=== PATIENT | female | born 1940 | race Caucasian/White ===

== ENCOUNTER 2017-03-05 10:00 | Day surgery (SDC) | payer MEDICARE, BC ==
[~2017-03-05] VITALS: Ht 160 cm; Wt 113.5 kg
[2017-03-05] MEDS ORDERED: GLUCOPHAGE500 MG/TAB PO (10:51)
[2017-03-05] MEDS ORDERED: LASIX 40MG TABL40 MG PO (10:52)
[2017-03-05] MEDS ORDERED: COZAAR 50MG50 MG/TAB PO (10:52)
[2017-03-05] MEDS ORDERED: ULTRAM 50MG TAB50 MG PO (10:53)
[2017-03-05] MEDS ORDERED: KLOR-CON M1010 MEQ PO (10:54)
[2017-03-05] MEDS ORDERED: ESTRACE0.1 MG/GM VG (10:56)
[2017-03-05] MEDS ORDERED: ULORIC40 MG PO (10:57)
[2017-03-05] MEDS ORDERED: COLCRYS0.6 MG PO (10:58)
[2017-03-05] MEDS ORDERED: MIRAPEX0.25 MG PO (11:00)
[2017-03-05] MEDS ORDERED: ASPIRIN 32325 MG/TAB PO (11:01)
[2017-03-05] MEDS ORDERED: OSTEO-BI-FLEX 21 TAB PO (11:01)
[2017-03-05] MEDS ORDERED: ALEVE 220MG220 MG PO (11:01)
[2017-03-05] MEDS ORDERED: CRANBERRY500 M3 PO (11:02)
[2017-03-05 11:11] VITALS: BP 132/79; PULSE 82; TEMP 98.5
[2017-03-05 13:50] VITALS: BP 116/84; PULSE 90; TEMP 98.2
[2017-03-05 14:05] VITALS: BP 118/87; PULSE 89
[2017-03-05 14:20] VITALS: BP 128/75; PULSE 89
[2017-03-05 14:35] VITALS: BP 110/58; PULSE 83
[2017-03-05] MEDS ORDERED: CEPHALEXIN500 M1 PO (15:14)
[2017-03-05] MEDS ORDERED: NORCO 325 MG-51 TAB PO (15:14)
== END 2017-03-05 15:30 | disposition home or self-care (01) ==
LOC: SDCO 10:00
DX: R39.15 Urgency of urination (principal); R35.0 Frequency of micturition; G30.9 Alzheimer's disease, unspecified; F02.80 Dementia in other diseases classified elsewhere, unspecified severity, without behavioral disturbance, psychotic disturbance, mood disturbance, and anxiety; E11.9 Type 2 diabetes mellitus without complications; I10 Essential (primary) hypertension; G25.81 Restless legs syndrome; M10.9 Gout, unspecified; K21.9 Gastro-esophageal reflux disease without esophagitis; J44.9 Chronic obstructive pulmonary disease, unspecified; G47.33 Obstructive sleep apnea (adult) (pediatric); Z90.49 Acquired absence of other specified parts of digestive tract; Z90.710 Acquired absence of both cervix and uterus; Z96.642 Presence of left artificial hip joint; Z96.653 Presence of artificial knee joint, bilateral; Z79.84 Long term (current) use of oral hypoglycemic drugs; Z85.72 Personal history of non-Hodgkin lymphomas; Z87.891 Personal history of nicotine dependence; Z81.8 Family history of other mental and behavioral disorders; Z83.3 Family history of diabetes mellitus; Z82.49 Family history of ischemic heart disease and other diseases of the circulatory system
CPT/HCPCS: C1778; C1894; J0690; J2250; J2405; J2704; J3010; J7030

== ENCOUNTER 2017-03-19 10:13 | Day surgery (SDC) | payer MEDICARE, BC ==
[~2017-03-19] VITALS: Ht 160 cm; Wt 112.3 kg
[~2017-03-19 10:13] MED LIST: ALEVE 220MG220 MG PO; ASPIRIN 32325 MG/TAB PO; CEPHALEXIN500 M1 PO; COLCRYS0.6 MG PO; COZAAR 50MG50 MG/TAB PO; CRANBERRY500 M3 PO; ESTRACE0.1 MG/GM VG; GLUCOPHAGE500 MG/TAB PO; KLOR-CON M1010 MEQ PO; LASIX 40MG TABL40 MG PO; MIRAPEX0.25 MG PO; NORCO 325 MG-51 TAB PO; OSTEO-BI-FLEX 21 TAB PO; ULORIC40 MG PO; ULTRAM 50MG TAB50 MG PO
[2017-03-19 11:45] VITALS: BP 151/78; PULSE 87; TEMP 98
[2017-03-19 13:15] VITALS: BP 116/50; PULSE 89; TEMP 97.4
[2017-03-19 13:30] VITALS: BP 129/48; PULSE 86
[2017-03-19 13:45] VITALS: BP 110/53; PULSE 88
[2017-03-19 14:00] VITALS: BP 117/45; PULSE 88
== END 2017-03-19 14:40 | disposition home or self-care (01) ==
LOC: SDCO 10:13
DX: R39.15 Urgency of urination (principal); R35.0 Frequency of micturition; M19.90 Unspecified osteoarthritis, unspecified site; E11.9 Type 2 diabetes mellitus without complications; I10 Essential (primary) hypertension; G25.81 Restless legs syndrome; G47.33 Obstructive sleep apnea (adult) (pediatric); J44.9 Chronic obstructive pulmonary disease, unspecified; Z96.642 Presence of left artificial hip joint; Z96.653 Presence of artificial knee joint, bilateral; Z90.710 Acquired absence of both cervix and uterus; Z90.49 Acquired absence of other specified parts of digestive tract; Z87.891 Personal history of nicotine dependence; Z82.49 Family history of ischemic heart disease and other diseases of the circulatory system; Z83.3 Family history of diabetes mellitus; Z81.8 Family history of other mental and behavioral disorders
CPT/HCPCS: C1767; C1787; J0690; J2250; J2704; J3010; J7120

== ENCOUNTER → 2021-12-29 | Outpatient (CLI) | payer MEDICARE, BC | LOC: COL.RAD 10:22 | DX: H53.2 Diplopia (principal); H50.112 Monocular exotropia, left eye ==